=== PATIENT | male | born 1980 | race Two or more races ===

== ENCOUNTER 2020-01-25 00:24 | Emergency (ER) | payer MEDICAID, OTHER ==
[~2020-01-25] VITALS: Ht 180.3 cm; Wt 97.5 kg
[2020-01-25 00:30] VITALS: BP 145/70
[2020-01-25] MEDS ORDERED: ACETAMINOPHEN 325 MG TAB PO ONE ×2 (01:35→01:45)
== END 2020-01-25 02:00 | disposition home or self-care (01) ==
LOC: EDBD 00:24 → ER 00:24
DX: U07.1 COVID-19 (principal); B34.9 Viral infection, unspecified; J06.9 Acute upper respiratory infection, unspecified
CPT/HCPCS: 36415; 71045; 87070; 87426; 87804; 87880